=== PATIENT | male | born 1975 | race Two or more races ===

== ENCOUNTER → 2021-02-27 | Outpatient (CLI) | payer BC, OTHER ==
[~2021-02-27] MED LIST: GASTROGRAFIN SOLUTION 30ML (Q9963) As Ordered ONE; ISOVUE-370 76% 100ML VIAL As Ordered ONE
--- NOTE | 2021-02-27 11:45 | REP ---
INDICATION: ABD PAIN EVAL FOR DIVERTICULITIS. COMPARISON: None. TECHNIQUE: Oral Gastrografin per our CT bowel contrast protocol followed by bolus 100 mL Isovue 370 scanning through the abdomen pelvis with coronal and sagittal reconstructions. FINDINGS: CT abdomen: The lung bases are clear. Heart is not enlarged there is no pericardial thickening or effusion. No hiatal hernia. The liver, spleen, gallbladder, pancreas, adrenal glands and kidneys show no abnormality. The aorta is without aneurysm or dissection. There is no periaortic, retroperitoneal or mesenteric pathologic sized lymphadenopathy. There is no hydronephrosis, hydroureter or ureteral stone on either side. Oral contrast filling the stomach. There is stool and gas in the colon without signs of colitis diverticulitis within the abdomen proper. There are no inflammatory changes about the cecum and no adenopathy. Appendix is not confidently identified. Bone windows show the spine and visualized ribs are normal for age. CT pelvis: Bony sacrum, SI joints, pelvis and hips were unremarkable. Distal small bowel loops show contrast without dilatation or inflammatory change. There is diverticulosis and and some muscular hypertrophy but at the junction of the distal left colon and proximal sigmoid and seen on images 113 through 117, there are subtle patchy edematous changes in the pericolonic fat suggesting mild/early diverticulitis. There is no microperforation or free air and no abscess or ascites. Distal ureters without dilatation or stone. The bladder partially filled without wall thickening, mass or stone. No ventral or inguinal hernia nor inguinal adenopathy. IMPRESSION: 1. Findings consistent with early diverticulitis at the junction of the distal left colon and proximal sigmoid in the left lower quadrant with patchy edema of the pericolonic fat. There are no microperforations or abscess. No other significant finding in the abdomen or pelvis. <Electronically signed by Tobias Greene > 02/27/21 [id number]
== END ==
LOC: M RAD 07:55
PROVIDERS: ATTEND Physician Assistant
DX: R10.9 Unspecified abdominal pain (principal); K57.30 Diverticulosis of large intestine without perforation or abscess without bleeding

== ENCOUNTER → 2021-12-07 | Outpatient (REF) | payer OTHER | LOC: M LAB REF 16:49 | PROVIDERS: ATTEND Physician Assistant | DX: R05.9 Cough, unspecified (principal) ==

== ENCOUNTER → 2021-12-07 | Outpatient (CLI) | payer OTHER | LOC: M RAD 12:41 | PROVIDERS: ATTEND Physician Assistant | DX: R05.9 Cough, unspecified (principal) ==

== ENCOUNTER → 2022-11-04 | Outpatient (CLI) | payer BC, OTHER | LOC: M LABSMTC 09:46 | PROVIDERS: ATTEND Anesthesiology | DX: Z01.818 Encounter for other preprocedural examination (principal); Z11.52 Encounter for screening for COVID-19 ==

== ENCOUNTER 2022-11-08 08:03 | Day surgery (SDC) | payer OTHER ==
[~2022-11-08] VITALS: Ht 180.3 cm; Wt 85.3 kg
[~2022-11-08 08:03] MED LIST changes: -GASTROGRAFIN SOLUTION 30ML (Q9963) As Ordered ONE; -ISOVUE-370 76% 100ML VIAL As Ordered ONE; +NS 1,000 ML IV ONE
[2022-11-08] MEDS ORDERED: LIDOCAINE 2% 100MG/5ML SDV (FOR ANES.) As Ordered ONE (09:42)
[2022-11-08] MEDS ORDERED: propofoL 500 MG/50 ML VIAL As Ordered ONE (09:42)
[2022-11-08 10:10] VITALS: BP 126/73
== END 2022-11-08 10:20 | disposition home or self-care (01) ==
LOC: M OPP 08:03
PROVIDERS: ATTEND Internal Medicine Gastroenterology
DX: Z12.11 Encounter for screening for malignant neoplasm of colon (principal); K64.8 Other hemorrhoids; K57.30 Diverticulosis of large intestine without perforation or abscess without bleeding

== ENCOUNTER 2022-11-25 06:56 | Emergency (ER) | payer OTHER ==
[~2022-11-25] VITALS: Ht 177.8 cm; Wt 81.8 kg
[2022-11-25] MEDS ORDERED: KETOROLAC 30 MG/ML 1ML VIAL IV ONE ×2 (07:15→07:35)
[2022-11-25] MEDS ORDERED: ONDANSETRON 4MG 2ML VIAL IV ONE (07:15)
[2022-11-25] MEDS ORDERED: NS 1,000 ML IV ONE (07:15)
[2022-11-25 07:44] LABS: BASO # 0.1 10^3/uL (0.0-0.2); BASO % 0.8 % (0.0-1.0); EOS # 0.1 10^3/uL (0.0-0.5); EOS % 1.4 % (0.0-3.0); HEMATOCRIT 47.3 % (42.0-52.0); HEMOGLOBIN 15.5 g/dl (13.5-17.5); LYMPH # 3.6 10^3/uL (1.5-5.0); LYMPH % 49.1 % (24.0-44.0); MEAN CORPUSCULAR HGB CONC 32.8 g/dl (32.0-36.5); MEAN CORPUSCULAR VOLUME 91.5 fl (80.0-96.0); MONO # 0.5 10^3/uL (0.0-0.8); MONO % 7.3 % (2.0-8.0); NEUTROPHILS % 41.1 % (36.0-66.0); PLATELET COUNT, AUTOMATED 301 10^3/uL (150-450); RED BLOOD COUNT 5.17 10^6/uL (4.30-6.10); WHITE BLOOD COUNT 7.2 10^3/uL (4.0-10.0)
[2022-11-25 08:43] LABS: ALBUMIN 4.3 G/DL (3.2-5.2); ALKALINE PHOSPHATASE 87 U/L (46-116); ALT/SGPT 30 U/L (7.0-40); AST/SGOT 70 U/L (<34); BILIRUBIN,DIRECT 0.3 MG/DL (<0.4); BILIRUBIN,TOTAL 1.9 MG/DL (0.3-1.2); BLOOD UREA NITROGEN 14 MG/DL (9-23); CALCIUM LEVEL 9.1 MG/DL (8.5-10.1); CARBON DIOXIDE LEVEL 25 MMOL/L (20-31); CHLORIDE LEVEL 104 MMOL/L (98-107); CREATININE FOR GFR 0.96 MG/DL (0.70-1.30); GLOMERULAR FILTRATION RATE > 60.0 (>60); GLUCOSE, FASTING 129 MG/DL (60-100); LIPASE 37 U/L (12-53); POTASSIUM SERUM 6.8 MMOL/L (3.5-5.1); SODIUM LEVEL 138 MMOL/L (136-145); TOTAL PROTEIN 7.4 G/DL (5.7-8.2)
[2022-11-25 09:00] VITALS: BP 154/81
[2022-11-25] MEDS ORDERED: FLOM0.4C39 PO (09:28)
[2022-11-25] MEDS ORDERED: ONDA4TAB6 PO (09:28)
[2022-11-25] MEDS ORDERED: KETO10TAB PO (09:28)
== END 2022-11-25 10:24 | disposition home or self-care (01) ==
LOC: M ED 06:56
DX: N20.1 Calculus of ureter (principal); Z88.0 Allergy status to penicillin; Z79.83 Long term (current) use of bisphosphonates; Z79.899 Other long term (current) drug therapy
CPT/HCPCS: 74176; 80048; 80076; 81001; 83690; 84132; 85025; 96361; 96374; 96375; 99284; J1885; J2405

== ENCOUNTER → 2023-12-31 | Outpatient (CLI) | payer OTHER ==
[~2023-12-31] MED LIST changes: +FLOM0.4C39 PO; +KETO10TAB PO; -NS 1,000 ML IV ONE; +ONDA4TAB6 PO
== END ==
LOC: M RAD 11:56
PROVIDERS: ATTEND Nurse Practitioner Family
DX: R10.32 Left lower quadrant pain (principal)